=== PATIENT | male | born 1995 | race African-American/Black ===

== ENCOUNTER → 2023-07-26 11:57 | Outpatient (CLI) | payer OTHER ==
[2023-07-26 12:22] LABS: BASOPHILS % (AUTO) 0.6 %; EOSINOPHILS # (AUTO) 0.1 10^3/uL (0.0-0.7); HCT - HEMATOCRIT 42.9 % (42.0-52.0); HGB - HEMOGLOBIN 14.3 g/dL (14.0-18.0); LYMPHOCYTES # (AUTO) 2.3 10^3/uL (1.5-3.5); LYMPHOCYTES % (AUTO) 35.7 %; MEAN CORPUSCULAR HEMOGLOBIN 28.3 pg (27.0-31.0); MEAN CORPUSCULAR HGB CONC 33.3 g/dL (32.0-36.0); MEAN PLATELET VOLUME 11.3 fL (7.4-11.4); MONOCYTES # (AUTO) 0.3 10^3/uL (0.0-1.0); MONOCYTES % (AUTO) 4.9 %; NEUTROPHILS # (AUTO) 3.6 10^3/uL (1.5-6.6); NEUTROPHILS % (AUTO) 57.6 %; PLT - PLATELET COUNT 324 10^3/uL (130-450); RED BLOOD COUNT 5.05 10^6/uL (4.70-6.10); WHITE BLOOD COUNT 6.3 x10^3/uL (4.8-10.8)
[2023-07-26 12:40] LABS: CALCIUM 9.6 mg/dL (8.5-10.3); CREATININE 1.1 mg/dL (0.6-1.3); POTASSIUM 3.8 mmol/L (3.5-4.5)
== END | disposition home or self-care (01) ==
LOC: LAB.N 11:57
PROVIDERS: ATTEND Physician Assistant Medical
DX: I10 Essential (primary) hypertension (principal)
CPT/HCPCS: 36415; 80048; 85025

== ENCOUNTER 2023-09-06 06:47 | Outpatient (CLI) | payer OTHER ==
--- NOTE | 2023-09-07 16:22 | Ultrasound Report ---
PROCEDURE: Arterial Visceral Complete INDICATIONS: HYPERTENSION TECHNIQUE: Real time scanning was performed of both kidneys, followed by Color and pulsed Doppler in terrogation of the renal vessels. COMPARISON: None FINDINGS: Aortic peak systolic velocity: 116 cm/s. Right side: Bonner-scale imaging: Kidney is 9.6 cm long. No hydronephrosis. No nephrolithiasis. Renal cortex is normal in echogenicity. No suspicious solid renal masses. Proximal renal artery peak systolic velocity: 97 cm/s. Mid renal artery peak systolic velocity: not seen Distal renal artery peak systolic velocity: 168 cm/s. Renal vein: Patent, without thrombus. Peak renal/aortic ratio (RAR): 1.4. Resistive indices are 0.48-0.58 Left side: Bonner-scale imaging: Kidney is 12.3 cm long. No hydronephrosis. No nephrolithiasis. Renal cortex i s normal in echogenicity. No suspicious solid renal masses. Proximal renal artery peak systolic velocity: 108 cm/s. Mid-renal artery peak systolic velocity: 64 cm/s. Distal renal artery peak systolic velocity: 62 cm/s. Renal vein: Patent, without thrombus. Peak renal/aortic ratio (RAR): 0.9. Resistive indices are 0.52 to 0.61 There are brisk systolic upstrokes bilaterally. IMPRESSION: No sonographic evidence of a hemodynamically significant renal artery stenosis. Of note, the right mi d renal artery is not seen secondary to rib shadowing. Reviewed by: Delmis Grey MD on 09/07/2023 4:21 PM PDT Approved by: Delmis Grey MD on 09/07/2023 4:21 PM PDT Station ID: [id number]
== END 2023-09-06 06:48 | disposition home or self-care (01) ==
LOC: DI 06:47
PROVIDERS: ATTEND General Practice
DX: I10 Essential (primary) hypertension (principal)
CPT/HCPCS: 93975